=== PATIENT | male | born 1940 | race Caucasian/White ===

== ENCOUNTER 2021-02-06 19:27 | Emergency (ER) | payer MEDICARE ==
[~2021-02-06] VITALS: Ht 172.7 cm; Wt 95.3 kg
[2021-02-06] MEDS ORDERED: PREDNISONE 20 M20 MG PO (19:38)
[2021-02-06] MEDS ORDERED: SINGULAIR 10 MG10 MG PO (19:38)
[2021-02-06] MEDS ORDERED: TOPROL XL50 MG PO (19:38)
[2021-02-06] MEDS ORDERED: PROSCAR 5MG TABL5 MG PO (19:39)
[2021-02-06] MEDS ORDERED: ZESTRIL40 MG PO (19:39)
[2021-02-06] MEDS ORDERED: AUGMENTIN 875-1 EACH PO (19:39)
[2021-02-06] MEDS ORDERED: ADVAIR 100-501 EACH INH (19:39)
[2021-02-06 20:02] LABS: HEMATOCRIT 33.7 % (42.0-52.0); HEMOGLOBIN 11.5 gm/dL (14.0-18.0); MCH 30.8 pg (26.0-34.0); MCV 90.8 fL (80.0-100.0); MPV 6.9 fl. (7.2-11.1); NUCLEATED RBCS 0 /100WBC; PLATELET COUNT* 234 thou/uL (150-400); RBC 3.71 mil/uL (4.50-6.00); RDW-CV 17.5 % (10.5-14.5); WBC 8.9 thou/uL (4.0-11.0)
[2021-02-06 20:13] LABS: CALCIUM 8.5 mg/dL (8.5-10.1); CREATININE 1.6 mg/dL (0.6-1.3); POTASSIUM 3.7 mmol/L (3.5-5.1)
[2021-02-06 20:14] LABS: INR 1.6; PROTIME 15.8 Seconds (9.20-11.50)
[2021-02-06 20:17] LABS: ALBUMIN 3.2 g/dL (3.4-5.0); MAGNESIUM 1.8 mg/dL (1.8-2.4); TOTAL BILIRUBIN 0.4 mg/dL (<0.1-1.0); TOTAL PROTEIN 6.5 g/dL (6.4-8.2)
[2021-02-06 20:49] LABS: ABSOLUTE EOSINOPHILS 0.1 thou/uL (0.0-0.7); ABSOLUTE LYMPHOCYTES 0.4 thou/uL (0.8-5.3); ABSOLUTE MONOCYTES 0.1 thou/uL (0.0-1.2); ABSOLUTE NEUTROPHILS 8.4 thou/uL (1.6-8.1)
[2021-02-06 20:50] LABS: ANISOCYTOSIS Occasional; PLATELET ESTIMATE ADEQUATE
[2021-02-06 21:35] VITALS: BP 138/98
--- NOTE | 2021-02-07 13:50 | EKG ---
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: : 1940 Requested By: Elly Dong Order Number: [id number] MD: Zachary Cantu Measurements Intervals [place] Rate: 91 P: CT: QRS: 116 QRSD: 105 T: -3 QT: 369 QTc: 455 Interpretive Statements Atrial fibrillation Right axis deviation Borderline repolarization abnormality No previous ECG available for comparison Electronically Signed On 02-07-2021 13:50:26 GAS FLOW REGULATOR by Zachary Cantu [email or web address] <ELECTRONICALLY SIGNED> By: Zachary Cantu MD, [facility] 02/07/21 1350 48 48 Zachary Cantu MD, FACC /EPI
== END 2021-02-06 21:35 | disposition home or self-care (01) ==
LOC: M.ERS 19:27
PROVIDERS: Emergency Medicine
DX: J81.1 Chronic pulmonary edema (principal); R05.9 Cough, unspecified; Z88.1 Allergy status to other antibiotic agents; Z88.3 Allergy status to other anti-infective agents; Z79.899 Other long term (current) drug therapy

== ENCOUNTER 2021-03-16 07:20 | Inpatient (IN) | payer MEDICARE ==
[~2021-03-16] VITALS: Ht 170.2 cm; Wt 93.0 kg
[~2021-03-16 07:20] MED LIST: ADVAIR 100-501 EACH INH; AUGMENTIN 875-1 EACH PO; PREDNISONE 20 M20 MG PO; PROSCAR 5MG TABL5 MG PO; SINGULAIR 10 MG10 MG PO; TOPROL XL50 MG PO; ZESTRIL40 MG PO
[2021-03-16 07:36] VITALS: BP 188/107
[2021-03-16] MEDS ORDERED: LIPITOR40 MG PO (08:22)
[2021-03-16] MEDS ORDERED: WARFARIN SODIUM5 MG PO (08:22)
[2021-03-16] MEDS ORDERED: ALLOPURINOL 10100 M3 PO (08:23)
[2021-03-16 08:38] LABS: ABSOLUTE LYMPHOCYTES 0.7 thou/uL (0.8-5.3); ABSOLUTE MONOCYTES 1.2 thou/uL (0.0-1.2); ABSOLUTE NEUTROPHILS 9.9 thou/uL (1.6-8.1); BASOPHILS 0.4 %; EOSINOPHILS 0.1 %; HEMATOCRIT 31.7 % (42.0-52.0); HEMOGLOBIN 10.6 gm/dL (14.0-18.0); LYMPHOCYTES 6.1 %; MCH 30.1 pg (26.0-34.0); MCHC 33.5 g/dL (28.0-37.0); MCV 89.9 fL (80.0-100.0); MONOCYTES 10.5 %; MPV 7.2 fl. (7.2-11.1); NUCLEATED RBCS 0 /100WBC; PLATELET COUNT* 278 thou/uL (150-400); POLYS 82.9 %; RBC 3.52 mil/uL (4.50-6.00); RDW-CV 17.5 % (10.5-14.5); WBC 11.9 thou/uL (4.0-11.0)
[2021-03-16 08:44] LABS: BE -5.2 mmol/L (-2 to +3); PCO2 30.7 mmHg (35.0-45.0)
[2021-03-16 08:46] LABS: PO2 39.9 mmHg (75.0-100.0)
[2021-03-16 08:50] LABS: CALCIUM 8.4 mg/dL (8.5-10.1); CREATININE 1.7 mg/dL (0.6-1.3); POTASSIUM 3.9 mmol/L (3.5-5.1)
[2021-03-16 08:52] LABS: APTT 39.1 Seconds (25.0-31.3); INR 3.2; PROTIME 31.4 Seconds (9.20-11.50)
[2021-03-16 09:05] LABS: ALBUMIN 2.8 g/dL (3.4-5.0); TOTAL BILIRUBIN 0.6 mg/dL (<0.1-1.0); TOTAL PROTEIN 6.2 g/dL (6.4-8.2)
--- NOTE | 2021-03-16 10:04 | EKG ---
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 : 1940 Requested By: Jose Trevino Order Number: [id number] MD: Artur Dixon Measurements Intervals [place] Rate: 83 P: NE: QRS: 107 QRSD: 110 T: -8 QT: 373 QTc: 439 Interpretive Statements Atrial fibrillation Ventricular premature complex Right axis deviation Borderline T abnormalities, inferior leads Baseline wander in lead(s) V4,V5 Compared to ECG 02/06/2021 19:49:34 Ventricular premature complex(es) now present Electronically Signed On 03-16-2021 10:04:36 OCCUPANCY SPECIALIST by Artur Dixon [email or web address] <ELECTRONICALLY SIGNED> By: Artur Dixon MD, [facility] 03/16/21 1004 6 6 Artur Dixon MD, [facility] /EPI
--- NOTE | 2021-03-16 13:34 | NUR ---
THE PATIENT WAS GIVEN AN INPATIENT BED FOR COMFORT AND IS EATING AT BEDSIDE WITH NO COMPLAINTS AT THIS TIME.
--- NOTE | 2021-03-16 15:59 | NUR ---
PT IS REQUESTING TO LEAVE AGAINST MEDICAL ADVICE HIS IS AT HOME AND NEEDS HIS HELP. RISKS AND BENEFITS OF LEAVING AMA HAS BEEN EXPLAINED TO THE PATIENT IN DETAIL. PT SIGNING AMA PAPERWORK. A REQUEST HAS BEEN MADE TO DR. VELEZ FOR SCRIPTS FOR PO ANTIBIOTICS.
[2021-03-16 16:09] VITALS: BP 171/70
--- NOTE | 2021-03-16 16:28 | CON ---
[address] [address] CONSULTATION Name: BROOKS WRIGHT Room: [place] [address] ADM IN Irene.Dereje.#: [id number] Admission: 03/16/21 Attend Phys: Mervin Guerrero MD Discharge: Date of : 44 Report #: [id number] THIS REPORT FOR: cc: Mauri Sanchez MD, Todd MD Blick, David R. MD [facility] ~ cc: Mauri Sanchez MD DATE OF CONSULTATION: 03/16/2021 CARDIOLOGY CONSULTATION HISTORY OF PRESENT ILLNESS: The patient is a 80-year-old white male who I was asked to see in the Emergency Room today after he complained of shortness of breath. The patient has a long and extensive past medical history. He has had coronary stents placed in [facility] in [address] Alberto. He previously was followed by Dr. Llanos. Repeat heart catheterization in 2011 showed no restenosis of the stents. He has permanent atrial fibrillation, has never been cardioverted. He has been chronically anticoagulated. I last saw him in the Cardiology Clinic last summer. He has chronic dyspnea on exertion is followed in the pulmonary clinic by Dr. Davies. He has oxygen at home. He does have chronic edema. Echocardiogram last summer showed ejection fraction of 60%. The patient notes that three weeks ago, he tested positive for COVID. He has been short of breath since that time. Recently, he has been coughing and has noticed an increase in edema. He did receive the vaccine and a booster as well. He denies any chest pain, palpitations, bleeding. PAST MEDICAL HISTORY: He has had previous renal cell carcinoma. He had partial right nephrectomy for cancer at [place]. He then underwent radiofrequency ablation of the left kidney at [place]. He has had sinus surgery. He has a history of hypertension, hyperlipidemia. No history of diabetes. CURRENT MEDICATIONS: Consist of nebulized treatment, Lipitor, Proscar, Lasix as needed for edema. He does have an appointment to be seen in the vein clinic. He is on lisinopril twice a day, metoprolol, Singulair inhaler, warfarin, which is dose adjusted by my office. ALLERGIES: HE HAS A PREVIOUS INTOLERANCE TO LEVOFLOXACIN, DEMEROL AND VALIUM. FAMILY HISTORY: His father had bypass surgery. SOCIAL HISTORY: He is . He and his live in [facility]. He smoked 2 packs a day, quit 40 years ago. No history of alcohol abuse. REVIEW OF SYSTEMS: He has no history of stroke, liver disease, [place] [address] CONSULTATION Name: BROOKS WRIGHT Room: [place] [address] ADM IN [facility]#: [id number] Admission: 03/16/21 Attend Phys: Mervin Guerrero MD Discharge: Date of : 44 Report #: [id number] condition, psychiatric illness. PHYSICAL EXAMINATION: GENERAL: Revealed a large, elderly male, appeared in no acute distress. VITAL SIGNS: Blood pressure 140/80, pulse 80. He is afebrile. HEENT: He was anicteric. Conjunctivae pink. Mucosa moist. NECK: Veins do not appear distended. No carotid bruits. CHEST: Revealed decreased breath sounds bilaterally. HEART: Irregular rhythm, no significant murmur. ABDOMEN: Soft. EXTREMITIES: Had trace edema. SKIN: Cool and dry. NEUROLOGIC: Nonfocal. DIAGNOSTIC STUDIES: His ECG last night showed atrial fibrillation with a controlled ventricular response rate, evidence of previous inferior infarction, a rare PVC. No significant ST or T-wave changes were noted. His last nuclear stress test in 03/2018 done here at [place]. Ejection fraction 69%. It was negative for ischemia. Portable chest x-ray showed infiltrates to the right lung base. LABORATORY DATA: Creatinine 1.7. Albumin 2.8. High sensitivity troponin 19. BNP 4060. His INR was 3.2. Hemoglobin 10.6, it was 11.5 last month. His COVID antigen stat test was negative. IMPRESSION AND RECOMMENDATIONS: 1. Acute on chronic diastolic heart failure. Recommend Lasix. 2. Atrial fibrillation. Rate controlled with beta josue. We will continue chronic anticoagulation. Maintain an INR of 2-3. 3. Coronary artery disease. No recent angina. Since the patient is on warfarin, I would not recommend aspirin. 4. Hypertension. The patient is on MATEO inhibitor, beta josue. 5. Hyperlipidemia. The patient is on a statin drug. 6. Previous removal of renal cell carcinoma. 7. Chronic obstructive pulmonary disease. The patient followed in pulmonary clinic. 8. Chronic kidney disease. 9. Anemia. No recent bleeding. <ELECTRONICALLY SIGNED> By: Artur Dixon MD, FACC 03/16/21 1628 1213 [id number] Dixon MD, FACC /nt
== END 2021-03-16 17:30 | disposition left against medical advice (07) | DRG 291 ==
LOC: M.ERS 07:20 → M.TBA-ER 09:49
PROVIDERS: Emergency Medicine; ADMIT Internal Medicine; ATTEND Internal Medicine
DX: I13.0 Hypertensive heart and chronic kidney disease with heart failure and stage 1 through stage 4 chronic kidney disease, or unspecified chronic kidney disease (principal); I50.33 Acute on chronic diastolic (congestive) heart failure; J96.01 Acute respiratory failure with hypoxia; N17.9 Acute kidney failure, unspecified; E87.2 Acidosis; J44.9 Chronic obstructive pulmonary disease, unspecified; I48.91 Unspecified atrial fibrillation; I25.10 Atherosclerotic heart disease of native coronary artery without angina pectoris; D64.9 Anemia, unspecified; N18.9 Chronic kidney disease, unspecified; Z20.822 Contact with and (suspected) exposure to COVID-19; Z53.29 Procedure and treatment not carried out because of patient's decision for other reasons; Z85.528 Personal history of other malignant neoplasm of kidney; I25.2 Old myocardial infarction; Z95.5 Presence of coronary angioplasty implant and graft; Z88.1 Allergy status to other antibiotic agents; Z88.8 Allergy status to other drugs, medicaments and biological substances; Z82.49 Family history of ischemic heart disease and other diseases of the circulatory system; Z79.01 Long term (current) use of anticoagulants